=== PATIENT | male | born 2000 | race Caucasian/White ===

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

== ENCOUNTER 2022-04-10 22:01 | Emergency (ER) | payer OTHER ==
[2022-04-10] MEDS ORDERED: Acetaminophen 500 MG TAB ONE (22:53)
== END 2022-04-11 00:40 | disposition home or self-care (01) ==
LOC: ERS 22:01
DX: B34.9 Viral infection, unspecified (principal)
CPT/HCPCS: 71045; 87081; 87430